=== PATIENT | female | born 1960 | race Two or more races ===

== ENCOUNTER 2018-03-10 17:38 | Emergency (ER) | payer MEDICAID, SELFPAY ==
[~2018-03-10] VITALS: Ht 165.1 cm; Wt 101.6 kg
[2018-03-10 17:35] VITALS: BP 133/80
[2018-03-10] MEDS ORDERED: Aspirin Baby 81mg ORAL ONE (18:00)
[2018-03-10] MEDS ORDERED: Methocarbamol 500mg tab ORAL ONE (18:15)
--- NOTE | 2018-03-10 18:16 | Emergency Room Report ---
History of Present Illness General Chief Complaint: Pain Source: Medical Record, EMS Present Illness HPI 58-year-old female patient presents to ER brought in by ambulance with multiple complaints. Was at her physicians office when she called 911 for ambulance to come get her. Complains of neck pain for the past several days, states neck pain became a headache which became pain in the rest of her body.denies history of injury or accident. Reports no vision changes, no head trauma, no LOC loss consciousness, no ringing in ears. Reports history of diabetes, reports numbness and tingling in extremities, states she is taking her medications that she should. Reports history of high blood pressure, states she was taking her medications. Denies fever, chest pain, shortness of breath, abdominal pain. Also complains of pain with urination during this time. denies vaginal discharge or hematuria. Denies back pain or flank pain. Denies vomiting. denies pain with ambulation. Allergies: Coded Allergies: ACETAMINOPHEN (Unverified Allergy, Unknown, 01/10/14) AMLODIPINE (Unverified Allergy, Unknown, 03/10/18) BENAZEPRIL (Unverified Allergy, Unknown, 01/10/14) IBUPROFEN (Unverified Allergy, Unknown, 01/10/14) LATEX (Unverified Allergy, Unknown, 01/10/14) Patient History Past Medical History: see triage record Last Menstrual Period: NA Reviewed Nursing Documentation: PMH: Agreed; PSxH: Agreed Nursing Documentation-PMH Past Medical History: No History, Except For Hx Hypertension: Yes Hx Diabetes: Yes Hx Cancer: Yes - left foot Review of Systems All Other Systems: negative except mentioned in HPI Physical Exam Vital Signs Date Time Temp Pulse Resp B/P (MAP) Pulse Ox O2 Delivery O2 Flow Rate FiO2 03/10/18 17:29 99.8 100 18 133/80 96 Room Air 99.9 Sp02 EP Interpretation: reviewed, normal General Appearance: well appearing, no apparent distress, alert, GCS 15, non- toxic Head: normocephalic, atraumatic Eyes: bilateral eye normal inspection, bilateral eye PERRL ENT: hearing grossly normal, normal pharynx, no angioedema, normal voice, TMs + canals normal, uvula midline, moist mucus membranes Neck: full range of motion, no bony tend, tender lateral Respiratory: lungs clear, normal breath sounds, no rhonchi, no respiratory distress, no accessory muscle use, no wheezing, speaking full sentences Cardiovascular #1: regular rate, rhythm, no edema Gastrointestinal: non tender, soft, no mass, non-distended, no guarding, no rebound Genitourinary: no CVA tenderness Musculoskeletal: back normal, digits/nails normal, gait/station normal, normal range of motion, non-tender, no calf tenderness, Christian's Sign negative Neurologic: alert, oriented x3, responsive, flagman III-XII nml as tested, motor strength/tone normal, sensory intact, cerebellar normal, normal gait, speech normal Psychiatric: mood/affect normal Skin: no rash Medical Decision Making PA Attestation Dr. Thomas is my supervising Physician whom patient management has been discussed with. Diagnostic Impression: Primary Impression: Neck pain Additional Impression: Dysuria ER Course Pt. presents to the ED c/o neck pain, generalized body pain, dysuria. multiple differentials considered including but not limited to sprain, strain, fracture, meningitis, CHF, PE, MT, UTI. Vital signs: are WNL, pt. is afebrile, ER COURSE: no focal neuro deficits, cranial nerves intact as tested, does not require imaging of the head at this time. Negative Kernig, negative Brudzinski, no fever, low suspicion for meningitis. negative Homans sign, denies cough, no hemoptysis, no tachycardia, low suspicion for DVT or PE this time. An X-ray of the cervical spine negative for acute disease per the preliminary reading. Likely muscle spasm causing pain symptoms. Patient instructed on RICE method: rest, ice, compression, elevation. Patient instructed on rest, ice and heat. Contact information for orthopedic urgent care provided, follow-up with urgent care if unable to followup with primary care provider and get referral to orthopedic radiologic technologist. Followup with primary care provider. Discuss referral to ortho/pain management/ PT as needed. Discuss further imaging with MRI/CT as needed. Reports takes [place] for pain, Reports allergy to Acetaminophen, gets cough when she takes medication, states she is "Ok" to take Tylenol. CBC and CMP unremarkable, no elevation WBCs LFTs UA unremarkable, no signs of infection, low suspicion for UTI. Take Tylenol for pain symptoms. Follow-up with primary care provider and referral to urology specialist. Negative troponin. EKG shows no ST elevations or arrhythmia. Chest x-ray negative for acute disease. Low suspicion for cardiac cause of pain. following completion of the labs discussed results with patient. Patient states she has been stressed lately and wants to know if stress could be causing her symptoms. Informed patient stress could be causing symptoms. Avoid stressors at home. Follow-up with primary care provider. Drink plenty of fluids. DISCHARGE: Rx provided for Lidocaine patch Rx provided for Tylenol Rx provided for Methocarbamol, SE drowsiness, do not take prior to drinking, driving, operating heavy machinery. At this time pt is stable for d/c to home. Patient is resting comfortably, in no acute distress, nontoxic appearing, talking without difficulty. Patient to take medications as instructed Will provide with patient care instructions and any necessary prescriptions. Care plan and follow-up instructions provided. Patient instructed to follow-up with primary care provider in 3 - 5 days. Patient questions asked and answered. Patient reports understanding and agreement to treatment plan. ER precautions given. Patient instructed to return to ER immediately for any new or worsening of symptoms including but not limited to increasing SOB, persistent fever, chest pain, intractable vomiting. - Please note that this Emergency Department Report was dictated using [employer] supervisor technology software, occasionally this can lead to erroneous entry secondary to interpretation by the dictation equipment. Labs Test 03/10/18 18:20 03/10/18 19:48 White Blood Count 5.6 K/UL (4.8-10.8) Red Blood Count 4.71 M/UL (4.20-5.40) Hemoglobin 13.3 G/DL (12.0-16.0) Hematocrit 40.0 % (37.0-47.0) Mean Corpuscular Volume 85 FL (80-99) Mean Corpuscular Hemoglobin 28.2 PG (27.0-31.0) Mean Corpuscular Hemoglobin Concent 33.2 G/DL (32.0-36.0) Red Cell Distribution Width 12.1 % (11.6-14.8) Platelet Count 152 K/UL (150-450) Mean Platelet Volume 8.1 FL (6.5-10.1) Neutrophils (%) (Auto) 62.7 % (45.0-75.0) Lymphocytes (%) (Auto) 23.9 % (20.0-45.0) Monocytes (%) (Auto) 11.1 % (1.0-10.0) Eosinophils (%) (Auto) 0.4 % (0.0-3.0) Basophils (%) (Auto) 2.0 % (0.0-2.0) Sodium Level 136 MMOL/L (136-145) Potassium Level 3.5 MMOL/L (3.5-5.1) Chloride Level 101 MMOL/L (98-107) Carbon Dioxide Level 25 MMOL/L (21-32) Anion Gap 10 mmol/L (5-15) Blood Urea Nitrogen 9 mg/dL (7-18) Creatinine 0.7 MG/DL (0.55-1.30) Estimat Glomerular Filtration Rate > 60 mL/min (>60) Glucose Level 115 MG/DL (74-106) Calcium Level 8.7 MG/DL (8.5-10.1) Total Bilirubin 0.6 MG/DL (0.2-1.0) Aspartate Amino Transf (AST/SGOT) 54 U/L (15-37) Alanine Aminotransferase (ALT/SGPT) 55 U/L (12-78) Alkaline Phosphatase 134 U/L (46-116) Total Creatine Kinase 34 U/L (26-308) Creatine Kinase MB < 0.5 NG/ML (0.0-3.6) Creatine Kinase MB Relative Index 1.4 Troponin I 0.000 ng/mL (0.000-0.056) Total Protein 7.4 G/DL (6.4-8.2) Albumin 3.2 G/DL (3.4-5.0) Globulin 4.2 g/dL Albumin/Globulin Ratio 0.8 (1.0-2.7) Lipase 135 U/L (73-393) Urine Color Yellow Urine Appearance Clear Urine pH 7 (4.5-8.0) Urine Specific [place] 1.005 (1.005-1.035) Urine Protein Negative (NEGATIVE) Urine Glucose (UA) Negative (NEGATIVE) Urine Ketones 1+ (NEGATIVE) Urine Occult Blood Negative (NEGATIVE) Urine Nitrite Negative (NEGATIVE) Urine Bilirubin Negative (NEGATIVE) Urine Urobilinogen Normal MG/DL (0.0-1.0) Urine Leukocyte Esterase 1+ (NEGATIVE) Urine RBC 0-2 /HPF (0 - 2) Urine WBC 2-4 /HPF (0 - 2) Urine Squamous Epithelial Cells Few /LPF (NONE/OCC) Urine Bacteria Few /HPF (NONE) EKG Diagnostic Results Rate: normal Rhythm: NSR ST Segments: no acute changes ASA given to the pt in ED: No PA Scribe Text Guido Michelle PA-C Rhythm Strip Diag. Results EP Interpretation: yes Rate: 90 Rhythm: NSR, no PVC's, no ectopy Other Impression low voltage QRS PA Scribe Text Guido Michelle PA-C Chest X-Ray Diagnostic Results Chest X-Ray Diagnostic Results : Chest X-Ray Ordered: Yes # of Views/Limited/Complete: 1 View Indication: Chest Pain EP Interpretation: Yes PA Xray: Interpretation reviewed, by supervising MD, and agrees with findings. Interpretation: no consolidation, no effusion, no pneumothorax, no acute cardiopulmonary disease Impression: No acute disease DANIEL Scribe Text Guido Michelle PA-C Other X-Ray Diagnostic Results Other X-Ray Diagnostic Results : X-Ray ordered: cervical neck # of Views/Limited Vs Complete: 3 View Indication: Pain EP Interpretation: Yes PA Xray: Interpretation reviewed, by supervising MD, and agrees with findings. Interpretation: no dislocation, no soft tissue swelling, no fractures Impression: No acute disease PA Scribe Text Guido Michelle PA-C Last Vital Signs Date Time Temp Pulse Resp B/P (MAP) Pulse Ox O2 Delivery O2 Flow Rate FiO2 03/10/18 17:35 99.9 100 18 133/80 96 Room Air 99.9 Disposition: HOME, SELF-CARE Condition: Stable Scripts Acetaminophen* (TYLENOL EXTRA STRENGTH*) 500 Mg Tablet 500 MG ORAL Q8H PRN for Prn Headache/Temp > 101, #30 TAB 0 Refills Prov: Remi Michelle P.A. 03/10/18 Methocarbamol* (ROBAXIN*) 500 Mg Tablet 500 MG PO TID, #21 TAB 0 Refills Prov: Remi Michelle P.A. 03/10/18 Lidocaine (Lidocaine) 1 Each Adh..patch 5 % TP DAILY for 7 Days, #7 PATCH Prov: Remi Michelle P.A. 03/10/18 Patient Instructions: Cervical Sprain, [id number], Dysuria, Muscle Cramps and Spasms, [id number] Additional Instructions: Patient instructed to follow up with primary care provider 3-5 and discuss further referral and imaging at that time. Patient instructed on rest, ice and heat. Do not take muscle relaxant prior to drinking, driving, or operating heavy machinery. Take medications as directed. Patient questions asked and answered. ER precautions given, patient instructed to return to ER immediately for any new or worsening of symptoms. Remi Michelle Mar 10, 2018 18:16
[2018-03-10 18:30] LABS: EOSINOPHILS % (AUTO) 0.4 % (0.0-3.0); HEMOGLOBIN 13.3 G/DL (12.0-16.0); LYMPHOCYTES % (AUTO) 23.9 % (20.0-45.0); MEAN CORPUSCULAR VOLUME 85 FL (80-99); MONOCYTES % (AUTO) 11.1 % (1.0-10.0); NEUTROPHILS % (AUTO) 62.7 % (45.0-75.0); PLATELET COUNT 152 K/UL (150-450); RED BLOOD COUNT 4.71 M/UL (4.20-5.40); RED CELL DISTRIBUTION WIDTH 12.1 % (11.6-14.8); WHITE BLOOD COUNT 5.6 K/UL (4.8-10.8)
[2018-03-10 18:50] LABS: ANION GAP 10 mmol/L (5-15); BLOOD UREA NITROGEN 9 mg/dL (7-18); CALCIUM 8.7 MG/DL (8.5-10.1); CARBON DIOXIDE 25 MMOL/L (21-32); CHLORIDE 101 MMOL/L (98-107); CREATININE 0.7 MG/DL (0.55-1.30); POTASSIUM 3.5 MMOL/L (3.5-5.1); SODIUM 136 MMOL/L (136-145)
[2018-03-10 18:55] LABS: ALANINE AMINOTRANSFERASE 55 U/L (12-78); ALBUMIN 3.2 G/DL (3.4-5.0); ALBUMIN/GLOBULIN RATIO 0.8 (1.0-2.7); ALKALINE PHOSPHATASE 134 U/L (46-116); ASPARTATE AMINO TRANSFERASE 54 U/L (15-37); BILIRUBIN,TOTAL 0.6 MG/DL (0.2-1.0); CKMB < 0.5 NG/ML (0.0-3.6); CREATINE KINASE 34 U/L (26-308)
[2018-03-10 19:54] VITALS: BP 116/73
[2018-03-10 20:13] LABS: APPEARANCE,URINE CLEAR; BILIRUBIN, URINE NEGATIVE (NEGATIVE); GLUCOSE, URINE (UA) NEGATIVE (NEGATIVE); KETONES,URINE 1+ (NEGATIVE); LEUKOCYTE ESTERASE ,URINE 1+ (NEGATIVE); NITRITE,URINE NEGATIVE (NEGATIVE); PH,URINE 7 (4.5-8.0); PROTEIN,URINE NEGATIVE (NEGATIVE); UROBILINOGEN,URINE NORMAL MG/DL (0.0-1.0)
[2018-03-10 20:16] LABS: COLOR,URINE YELLOW
[2018-03-10] MEDS ORDERED: ROBAXIN500 MG PO (20:36)
[2018-03-10] MEDS ORDERED: LIDOCAINE700 M1 TP (20:36)
[2018-03-10] MEDS ORDERED: TYLENOL EXTRA500 MG ORAL (20:36)
[2018-03-10 21:19] VITALS: BP 132/73
--- NOTE | 2018-03-11 09:04 | Diagnostic Imaging Report ---
Indication: Neck pain Technique: 3 views of the cervical spine Comparison: none Findings: Bony alignment is normal. There is no prevertebral soft tissue swelling. There is minimal degenerative disc narrowing at C5-6. The remaining disc spaces are preserved. No acute fractures. No dislocations. Impression: Minimal degenerative change. Otherwise negative
--- NOTE | 2018-03-11 09:05 | Diagnostic Imaging Report ---
Indication: Chest pain Technique: One view of the chest Comparison: none Findings: Lungs and pleural spaces are clear. Heart size is normal. The aorta is somewhat tortuous and ectatic Impression: No acute process
--- NOTE | 2018-03-11 15:34 | Cardiology Report ---
APPROVED REPORT EKG Measurement Heart [id number] Normal sinus rhythm Right axis deviation Pulmonary disease pattern Abnormal ECG
== END 2018-03-10 21:40 | disposition home or self-care (01) ==
LOC: EDBD 17:38 → EMR 18:00
DX: M54.2 Cervicalgia (principal); R30.0 Dysuria; E11.9 Type 2 diabetes mellitus without complications; I10 Essential (primary) hypertension
CPT/HCPCS: 36415; 71045; 72040; 80053; 81003; 82550; 82553; 83690; 84484; 85025; 93005; 99284